=== PATIENT | female | born 1950 | race Asian ===

== ENCOUNTER → 2017-01-30 | Outpatient (CLI) | payer MEDICARE | END | disposition home or self-care (01) | LOC: CFH 10:47 | PROVIDERS: ATTEND Family Medicine | DX: Z12.31 Encounter for screening mammogram for malignant neoplasm of breast (principal); N63 Unspecified lump in breast | CPT/HCPCS: G0202 ==

== ENCOUNTER → 2017-02-21 | Outpatient (CLI) | payer MEDICARE ==
[~2017-02-21] MED LIST: LIDOCAINE 1%-EPI 1:100K, 20ML ONE; SODIUM BICARBONATE 4.2%, 5ML ONE
== END | disposition home or self-care (01) ==
LOC: CFH 09:59
PROVIDERS: ATTEND Family Medicine
DX: R92.0 Mammographic microcalcification found on diagnostic imaging of breast (principal)
CPT/HCPCS: 19083; 88305; J3490

== ENCOUNTER 2017-03-10 12:54 | Day surgery (SDC) | payer MEDICARE ==
[2017-03-07 12:15] LABS: BLOOD UREA NITROGEN 12 mg/dL (7-18)
[~2017-03-10] VITALS: Ht 160 cm; Wt 71.5 kg
[~2017-03-10 12:54] MED LIST changes: +AMLO5TAB2 PO; +BUPIVACAINE/PF-EPI 0.25% 1:200K ONE; -LIDOCAINE 1%-EPI 1:100K, 20ML ONE; -SODIUM BICARBONATE 4.2%, 5ML ONE
[2017-03-10] MEDS ORDERED: LACTATED RINGERS 1,000 ML IV SCH (15:15)
[2017-03-10 15:17] VITALS: BP 147/76
[2017-03-10] MEDS ORDERED: FENTANYL PF 100 MCG/2ML ONE (15:49)
[2017-03-10] MEDS ORDERED: CEFAZOLIN 1,000 MG ONE (16:00)
[2017-03-10] MEDS ORDERED: HYDROmorphone 1 MG/ML, 1ML IV PRN (16:00)
[2017-03-10] MEDS ORDERED: OXYcodone 5 MG/5 ML ORAL.SOL UDC PO PRN (16:00)
[2017-03-10] MEDS ORDERED: ONDANSETRON 2MG/ML, 2ML IVPush PRN (16:00)
[2017-03-10] MEDS ORDERED: FENTANYL PF 100 MCG/2ML IV PRN (16:00)
[2017-03-10] MEDS ORDERED: METOCLOPRAMIDE 5 MG/ML, 2ML ONE (16:00)
[2017-03-10] MEDS ORDERED: DEXAMETHASONE 4 MG/ML, 1ML ONE (16:00)
[2017-03-10] MEDS ORDERED: hydrALAzine 20 MG/ML, 1ML IV PRN (16:00)
[2017-03-10] MEDS ORDERED: PROMETHAZINE 25 MG/ML, 1ML IV PRN (16:00)
[2017-03-10] MEDS ORDERED: ONDANSETRON 2MG/ML, 2ML ONE ×2 (16:00→18:52)
[2017-03-10] MEDS ORDERED: LABETALOL 5MG/ML, 20ML IV PRN (16:00)
[2017-03-10] MEDS ORDERED: PROPOFOL 10 MG/ML, 20ML ONE (16:00)
[2017-03-10] MEDS ORDERED: LIDOCAINE 2% 100MG/5ML SYRINGE ONE (16:00)
[2017-03-10] MEDS ORDERED: MIDAZOLAM 1 MG/ML, 2ML IV PRN (16:00)
[2017-03-10] MEDS ORDERED: LIDOCAINE 1%-EPI 1:100K, 20ML ONE (16:18)
[2017-03-10] MEDS ORDERED: SODIUM BICARBONATE 4.2%, 5ML ONE (16:18)
[2017-03-10] MEDS ORDERED: OXYcodone 5 MG/5 ML ORAL.SOL UDC ONE (17:11)
[2017-03-10] MEDS ORDERED: ONDANSETRON 2MG/ML, 2ML IVPush ONE (19:00)
== END 2017-03-10 19:35 | disposition home or self-care (01) ==
LOC: OUT 12:54 → CFH 19:35
PROVIDERS: ATTEND Surgery
DX: D05.11 Intraductal carcinoma in situ of right breast (principal); N60.21 Fibroadenosis of right breast; D24.1 Benign neoplasm of right breast; I10 Essential (primary) hypertension; Z82.3 Family history of stroke; Z82.49 Family history of ischemic heart disease and other diseases of the circulatory system; Z80.3 Family history of malignant neoplasm of breast; Z72.89 Other problems related to lifestyle
CPT/HCPCS: 19281; 19301; 36415; 80048; 88307; 88360; 93005; J0690; J1100; J2405; J2704; J2765; J3010; J3490; J7120; 76098

== ENCOUNTER → 2017-11-16 | Outpatient (CLI) | payer MEDICARE ==
[~2017-11-16] MED LIST changes: -BUPIVACAINE/PF-EPI 0.25% 1:200K ONE
== END | disposition home or self-care (01) ==
LOC: CFH 08:01
PROVIDERS: ATTEND Internal Medicine Hematology & Oncology
DX: Z13.820 Encounter for screening for osteoporosis (principal); M81.0 Age-related osteoporosis without current pathological fracture; D05.11 Intraductal carcinoma in situ of right breast
CPT/HCPCS: 77080

== ENCOUNTER 2017-12-02 13:46 | Emergency (ER) | payer MEDICARE ==
[~2017-12-02] VITALS: Ht 160 cm; Wt 72.4 kg
[2017-12-02] MEDS ORDERED: SODIUM CHLORIDE 0.9% 1,000ML IVBOLUS ONE (14:30)
[2017-12-02] MEDS ORDERED: SODIUM CHLORIDE FLUSH 10ML SYR IVF ONE (14:30)
[2017-12-02] MEDS ORDERED: AMLO5TAB2 PO (14:35)
[2017-12-02] MEDS ORDERED: ANAS1TAB PO (14:36)
[2017-12-02 14:49] LABS: MEAN CORPUSCULAR HEMOGLOBIN 29.7 pg (27.0-34.8); MEAN CORPUSCULAR HGB CONC 33.1 g/dL (32.4-35.8); MEAN CORPUSCULAR VOLUME 89.6 fL (80-100); MEAN PLATELET VOLUME 7.7 fL (7.4-10.4); PLATELET COUNT 199 x10^3/uL (130-400); RED BLOOD COUNT 4.43 x10^6/uL (3.82-5.3); RED CELL DISTRIBUTION WIDTH 13.6 % (9.6-15.2)
[2017-12-02 15:00] LABS: ALANINE AMINOTRANSFERASE 48 U/L (12-78); ANION GAP 8 mmol/L (5-15); CHLORIDE 109 mmol/L (98-107); CREATININE 0.97 mg/dL (0.55-1.02)
[2017-12-02 15:02] LABS: ALKALINE PHOSPHATASE 92 U/L (45-117); BILIRUBIN,TOTAL 0.6 mg/dL (0.2-1.0)
[2017-12-02] MEDS ORDERED: ACETAMINOPHEN 500 MG TABLET ONE (15:28)
[2017-12-02] MEDS ORDERED: ACETAMINOPHEN 500 MG TABLET PO ONE (15:30)
[2017-12-02 15:34] LABS: MD YES
[2017-12-02 15:37] LABS: CULTURE INDICATED? YES; MICROSCOPIC INDICATED
[2017-12-02 15:39] LABS: BAND#(MANUAL) 0.52 x10^3/uL; BANDS%(MANUAL) 13 % (0-7); EOS#(MANUAL) 0.04 x10^3/uL (0.0-0.4); EOS% (MANUAL) 1 % (1-7); LYMPH#(MANUAL) 0.28 x10^3/uL (1-3.4); LYMPHS% (MANUAL) 7 % (22-44); MONOS#(MANUAL) 0.04 x10^3/uL (0.3-2.7); MONOS% (MANUAL) 1 % (2-9); SEG#(MANUAL) 3.12 x10^3/uL (1.8-6.8); SEGS% (MANUAL) 78 % (42-75)
[2017-12-02 15:56] LABS: HEMOGRAM NOTE RECHECKED
[2017-12-02 16:10] LABS: <PLATELET ESTIMATE> ADEQUATE; <PLT MORPHOLOGY> NORMAL PLT MORPH; <RBC MORPHOLOGY> NORMAL
[2017-12-02] MEDS ORDERED: OMNIPAQUE 350 MG/ML, 100ML BOTTLE ONE (16:26)
[2017-12-02] MEDS ORDERED: CEFTRIAXONE PMX 1GM/50ML 50 ML IVPB ONE (17:30)
[2017-12-02] MEDS ORDERED: CEFTRIAXONE PMX 1GM/50ML 50 ML ONE (17:53)
[2017-12-02 17:58] VITALS: BP 119/60
[2017-12-02] MEDS ORDERED: IBUPROFEN 200 MG TABLET ONE (18:07)
[2017-12-02] MEDS ORDERED: IBUPROFEN 200 MG TABLET PO ONE (18:30)
== END 2017-12-02 18:47 | disposition home or self-care (01) ==
LOC: ED 16:46
DX: N30.00 Acute cystitis without hematuria (principal); Z85.3 Personal history of malignant neoplasm of breast
CPT/HCPCS: 36415; 74177; 80053; 81001; 83605; 83690; 84145; 85025; 87040; 87077; 87086; 87186; 96361; 96365; 99285; J0696; J7030; Q9967

== ENCOUNTER → 2018-01-10 | Outpatient (CLI) | payer MEDICARE ==
[~2018-01-10] MED LIST changes: +ANAS1TAB PO
== END | disposition home or self-care (01) ==
LOC: CVU 11:03
PROVIDERS: ATTEND Internal Medicine Hematology & Oncology
DX: R01.1 Cardiac murmur, unspecified (principal); D05.11 Intraductal carcinoma in situ of right breast; I10 Essential (primary) hypertension; I51.7 Cardiomegaly
CPT/HCPCS: 93306

== ENCOUNTER → 2018-04-25 | Outpatient (CLI) | payer MEDICARE | END | disposition home or self-care (01) | LOC: CFH 10:40 | PROVIDERS: ATTEND Internal Medicine Hematology & Oncology | DX: Z12.31 Encounter for screening mammogram for malignant neoplasm of breast (principal); N60.02 Solitary cyst of left breast | CPT/HCPCS: 77067 ==

== ENCOUNTER → 2019-11-21 | Outpatient (CLI) | payer MEDICARE ==
[~2019-11-21] MED LIST changes: +AMLO-150 PO; -AMLO5TAB2 PO
== END | disposition home or self-care (01) ==
LOC: CFH 09:43 → EDSTATUS 10:15
PROVIDERS: ATTEND Internal Medicine Hematology & Oncology
DX: D05.11 Intraductal carcinoma in situ of right breast (principal); M81.8 Other osteoporosis without current pathological fracture; M85.80 Other specified disorders of bone density and structure, unspecified site
CPT/HCPCS: 77080